=== PATIENT | male | born 1980 | race Caucasian/White ===

== ENCOUNTER 2022-09-04 07:36 | Emergency (ER) | payer OTHER ==
[~2022-09-04] VITALS: Ht 175.3 cm; Wt 82.6 kg
[2022-09-04 07:40] VITALS: BP 132/63
--- NOTE | 2022-09-04 07:40 | NUR ---
[id number] [address], "cold" insomia s/p using meth last night. denies si
--- NOTE | 2022-09-04 08:16 | NUR ---
pt left before being discharge.
== END 2022-09-04 08:16 | disposition home or self-care (01) ==
LOC: ER 07:40
DX: R68.83 Chills (without fever) (principal); F15.10 Other stimulant abuse, uncomplicated; Z59.00 Homelessness unspecified